=== PATIENT | female | born 1950 | race Caucasian/White ===

== ENCOUNTER → 2019-01-20 | Outpatient (CLI) | payer OTHER | LOC: M.ULTRA 14:30 | DX: S86.011A Strain of right Achilles tendon, initial encounter (principal); I82.4Z1 Acute embolism and thrombosis of unspecified deep veins of right distal lower extremity; X58.XXXA Exposure to other specified factors, initial encounter; Y93.89 Activity, other specified; Y92.89 Other specified places as the place of occurrence of the external cause; Y99.8 Other external cause status ==